=== PATIENT | female | born 1965 | race Caucasian/White ===

== ENCOUNTER 2018-01-21 06:22 | Emergency (ER) | payer MEDICAID ==
[2018-01-21] MEDS: HYDROCODONE/APAP (5/325) TAB PO (06:59)
== END 2018-01-21 09:04 | disposition home or self-care (01) ==
LOC: FTE 06:22
DX: S69.91XA Unspecified injury of right wrist, hand and finger(s), initial encounter (principal); I10 Essential (primary) hypertension; E11.9 Type 2 diabetes mellitus without complications; W18.30XA Fall on same level, unspecified, initial encounter; Y92.89 Other specified places as the place of occurrence of the external cause
CPT/HCPCS: 73090; 73090-RT; 73110-RT; 73130-RT; 99283-25